=== PATIENT | female | born 1990 | race Caucasian/White ===

== ENCOUNTER 2017-06-28 14:27 | Emergency (ER) | payer BC, OTHER ==
--- NOTE | 2017-06-28 14:43 | UC ---
Complaint Female HPI - HPI Summary HPI Summary: 26 year old female presents with complains of vaginal discharge after unprotected sex. - History Of Current Complaint Stated Complaint: PERSONAL Time Seen by Provider: 06/28/17 14:38 - Allergies/Home Medications Allergies/Adverse Reactions: Allergies Allergy/AdvReac Type Severity Reaction Status Date / Time Amoxicillin Allergy Rash Verified 06/28/17 14:40 Home Medications: Home Medications Levonorgestrel-Ethinyl Estradi [Quasense 0.15-0.03 mg] 06/28/17 [History] Thyroid [Riga Thyroid] 180 mg PO 06/28/17 [History] PMH/Surg Hx/FS Hx/Imm Hx Previously Healthy: Yes Review of Systems Constitutional: Negative Skin: Negative Eyes: Negative ENT: Negative Respiratory: Negative Cardiovascular: Negative Gastrointestinal: Negative Genitourinary: Dysuria, Frequency, Urgency, Other - foul smelling vaginal discharge Motor: Negative Neurovascular: Negative Musculoskeletal: Negative Neurological: Negative Psychological: Negative All Other Systems Reviewed And Are Negative: Yes Physical Exam Triage Information Reviewed: Yes Eye Exam: Normal ENT Exam: Normal Dental Exam: Normal Neck exam: Normal Neck: Positive: 1 Respiratory Exam: Normal Cardiovascular Exam: Normal Abdominal Exam: Normal Musculoskeletal Exam: Normal Neurological Exam: Normal Psychological Exam: Normal Skin Exam: Normal Complaint Female Dx - Differential Dx/Diagnosis Provider Diagnoses: vaginal discharge Discharge - Discharge Plan Condition: Stable Disposition: HOME Prescriptions: Fluconazole [Fluconazole 150 mg tab] 150 mg PO ONCE #1 tab Metronidazole [Flagyl 500 MG TAB] 500 mg PO BID #14 tab Nitrofurantoin Monohyd Macro [Macrobid] 100 mg PO BID #14 cap Patient Education Materials: Sexually Transmitted Diseases (ED), Condom Use (ED ), Urinary Tract Infection in Women (ED) Referrals: No Primary Care Phys,NOPCP [Primary Care Provider] -
[2017-06-28] MEDS ORDERED: Azithromycin TAB* 250 MG PO ONE (14:58)
[2017-06-28 15:07] VITALS: BP 146/105
== END 2017-06-28 15:17 | disposition home or self-care (01) ==
LOC: UCEAST 14:27
DX: N89.8 Other specified noninflammatory disorders of vagina (principal); R30.0 Dysuria; Z88.1 Allergy status to other antibiotic agents
CPT/HCPCS: 81003; 84702; 87077; 87086; 87491; 87591; 87661; 99202; A9270-GY; G0463